=== PATIENT | male | born 1965 | race African-American/Black ===

== ENCOUNTER 2022-03-01 21:35 | Inpatient (IN) | payer MEDICAID ==
[~2022-03-01] VITALS: Ht 170.2 cm; Wt 68.8 kg
[2022-03-01 22:28] LABS: Basophils # (auto) 0 10 ^3/uL (0-0.2); Basophils % (auto) 0.6 % (0.0-2.0); Eosinophils # (auto) 0.1 10 ^3/uL (0-0.8); Eosinophils % (auto) 1.1 % (0.0-7.0); Hemoglobin 12.3 g/dL (13.5-17.5); Lymphocytes # (auto) 1.4 10 ^3/uL (0.4-5.4); Lymphocytes % (auto) 21.2 % (10.0-50.0); Mean Corpuscular Hemoglobin 30.8 pg (28.0-32.0); Mean Corpuscular Hgb Conc. 33.3 g/dL (32.0-36.0); Mean Corpuscular Volume 92.6 fL (80.0-100.0); Monocytes # (auto) 0.6 10 ^3/uL (0-1.3); Monocytes % (auto) 9.3 % (0.0-12.0); Neutrophils # (auto) 4.5 10 ^3/uL (1.6-8.6); Neutrophils % (auto) 67.8 % (37.0-80.0); Nucleated Red Blood Cells % 0.1 %; Red Blood Cells 3.99 10^6/uL (4.5-5.90); Red Cell Distribution Width 12.9 % (11.8-14.3); White Blood Cell 6.7 10^3/uL (4.4-10.8)
[2022-03-01 22:48] LABS: Albumin 3.7 g/dL (3.4-5.0); Calcium 8.2 mg/dL (8.5-10.1); Potassium 3.1 mmol/L (3.5-5.1)
[2022-03-01 22:59] LABS: BUN/Creatinine Ratio 5.9; Bilirubin, Total 1.3 mg/dL (0.2-1.0); Total Protein 8.1 g/dL (6.4-8.2)
[2022-03-01 23:11] LABS: Urine Bacteria NONE SEEN /hpf (None Seen); Urine Blood Negative /uL (Negative); Urine Mucus FEW (None Seen); Urine Specific Gravity 1.007 (1.001-1.035); Urine WBC <1 /hpf (0 - 3)
[2022-03-02] MEDS ORDERED: ALBUTEROL SULF 2.5 MG/0.5ML(0.5%) NEB SOLN NEB ONE (01:30)
[2022-03-02] MEDS ORDERED: MORPHINE SULFATE INJ 2 MG/ml SYRG IV PRN (04:45)
[2022-03-02] MEDS ORDERED: TEMAZEPAM 15 MG CAP PO PRN (04:45)
[2022-03-02] MEDS ORDERED: NITROGLYCERIN 0.4 MG SL TAB SL PRN (04:45)
[2022-03-02] MEDS ORDERED: ACETAMINOPHEN 325 MG TAB PO PRN (04:45)
[2022-03-02] MEDS ORDERED: ONDANSETRON HCL 4 MG/2 ML VIAL IV PRN (04:45)
[2022-03-02] MEDS: POTASSIUM CHL 20MEQ/100ML 100 ML IV SCH ×2 (06:33→08:07)
[2022-03-02] MEDS: SODIUM CHLOR 0.9% PF (SALINE LOCK) 10ML VIAL/SYR IV SCH ×3 (06:34→21:33)
[2022-03-02 07:28] LABS: Basophils # (auto) 0 10 ^3/uL (0-0.2); Basophils % (auto) 0.6 % (0.0-2.0); Eosinophils # (auto) 0.1 10 ^3/uL (0-0.8); Eosinophils % (auto) 1.8 % (0.0-7.0); Hemoglobin 11.9 g/dL (13.5-17.5); Lymphocytes # (auto) 1.4 10 ^3/uL (0.4-5.4); Lymphocytes % (auto) 23.6 % (10.0-50.0); Mean Corpuscular Hemoglobin 31.4 pg (28.0-32.0); Mean Corpuscular Hgb Conc. 33.9 g/dL (32.0-36.0); Mean Corpuscular Volume 92.5 fL (80.0-100.0); Monocytes # (auto) 0.7 10 ^3/uL (0-1.3); Monocytes % (auto) 10.9 % (0.0-12.0); Neutrophils # (auto) 3.8 10 ^3/uL (1.6-8.6); Neutrophils % (auto) 63.1 % (37.0-80.0); Nucleated Red Blood Cells % 0.3 %; Red Blood Cells 3.79 10^6/uL (4.5-5.90); Red Cell Distribution Width 13.1 % (11.8-14.3); White Blood Cell 6.1 10^3/uL (4.4-10.8)
[2022-03-02 07:40] LABS: Albumin 3.5 g/dL (3.4-5.0); Calcium 8.2 mg/dL (8.5-10.1); Potassium 3.3 mmol/L (3.5-5.1)
[2022-03-02 07:43] LABS: BUN/Creatinine Ratio 7.2; Bilirubin, Total 1.2 mg/dL (0.2-1.0); Total Protein 7.4 g/dL (6.4-8.2)
[2022-03-02] MEDS: FAMOTIDINE (10MG/ML) 2ML VL IV SCH ×2 (10:08→21:32)
[2022-03-02] MEDS: ASPirin 81 mg TAB PO SCH (10:08)
[2022-03-02] MEDS: CARVEDILOL 12.5 MG TAB PO SCH ×2 (10:09→21:33)
[2022-03-02] MEDS ORDERED: SPIRONOLACTONE 25 MG TAB PO ONE (15:30)
[2022-03-02 16:27] VITALS: BP 175/73
[2022-03-02] MEDS: cloNIDine HCL 0.1 MG TAB PO PRN (19:29)
[2022-03-02] MEDS: DOCUSATE SOD 100 MG CAP PO PRN (20:13)
[2022-03-02] MEDS: traMADol HCL 50 MG TAB PO PRN (20:13)
[2022-03-02 22:00] VITALS: BP 178/78
[2022-03-03 05:00] VITALS: BP 151/73
[2022-03-03] MEDS: SODIUM CHLOR 0.9% PF (SALINE LOCK) 10ML VIAL/SYR IV SCH ×3 (05:47→22:45)
[2022-03-03 06:25] LABS: Basophils # (auto) 0.1 10 ^3/uL (0-0.2); Basophils % (auto) 0.9 % (0.0-2.0); Eosinophils # (auto) 0.2 10 ^3/uL (0-0.8); Eosinophils % (auto) 3.1 % (0.0-7.0); Hematocrit 34.7 % (41.0-53.0); Hemoglobin 11.5 g/dL (13.5-17.5); Lymphocytes # (auto) 1.6 10 ^3/uL (0.4-5.4); Lymphocytes % (auto) 27.3 % (10.0-50.0); Mean Corpuscular Hemoglobin 31.3 pg (28.0-32.0); Mean Corpuscular Hgb Conc. 33.2 g/dL (32.0-36.0); Mean Corpuscular Volume 94.4 fL (80.0-100.0); Monocytes # (auto) 0.7 10 ^3/uL (0-1.3); Monocytes % (auto) 11.2 % (0.0-12.0); Neutrophils # (auto) 3.5 10 ^3/uL (1.6-8.6); Neutrophils % (auto) 57.5 % (37.0-80.0); Nucleated Red Blood Cells % 0.2 %; Red Blood Cells 3.68 10^6/uL (4.5-5.90); Red Cell Distribution Width 13.1 % (11.8-14.3)
[2022-03-03 06:28] LABS: Albumin 3.3 g/dL (3.4-5.0); Calcium 8.6 mg/dL (8.5-10.1); Potassium 3.3 mmol/L (3.5-5.1)
[2022-03-03 06:31] LABS: BUN/Creatinine Ratio 12.7; Bilirubin, Total 1.1 mg/dL (0.2-1.0); Total Protein 6.9 g/dL (6.4-8.2)
[2022-03-03 09:00] VITALS: BP 167/75
[2022-03-03] MEDS: FAMOTIDINE (10MG/ML) 2ML VL IV SCH ×2 (09:49→22:45)
[2022-03-03] MEDS: SPIRONOLACTONE 25 MG TAB PO SCH (09:50)
[2022-03-03] MEDS: ASPirin 81 mg TAB PO SCH (09:50)
[2022-03-03] MEDS: cloNIDine HCL 0.1 MG TAB PO PRN ×2 (09:51→18:57)
[2022-03-03] MEDS: traMADol HCL 50 MG TAB PO PRN ×2 (09:52→17:59)
[2022-03-03] MEDS: CARVEDILOL 12.5 MG TAB PO SCH ×2 (09:52→22:46)
[2022-03-03 13:00] VITALS: BP 124/71
[2022-03-03] MEDS ORDERED: LOSARTAN POTASSIUM 50 MG TAB PO ONE (13:50)
[2022-03-03 17:00] VITALS: BP 147/78
[2022-03-03] MEDS ORDERED: amLODIPine BESYLATE 5 MG TAB PO ONE (19:30)
[2022-03-03 22:00] VITALS: BP 154/80
[2022-03-04] MEDS: traMADol HCL 50 MG TAB PO PRN ×3 (01:53→20:55)
[2022-03-04] MEDS: DOCUSATE SOD 100 MG CAP PO PRN (01:54)
[2022-03-04 05:00] VITALS: BP 150/83
[2022-03-04] MEDS: SODIUM CHLOR 0.9% PF (SALINE LOCK) 10ML VIAL/SYR IV SCH ×3 (05:12→21:30)
[2022-03-04] MEDS ORDERED: TRAM50TA2 PO (07:01)
[2022-03-04] MEDS ORDERED: NITR0.4S29 SL (07:05)
[2022-03-04] MEDS ORDERED: BENA-30 PO (07:05)
[2022-03-04] MEDS ORDERED: CLON0.1T PO (07:05)
[2022-03-04] MEDS ORDERED: FENO54TA4 PO (07:05)
[2022-03-04] MEDS ORDERED: FURO40TA4 PO (07:05)
[2022-03-04] MEDS ORDERED: MET50T PO (07:05)
[2022-03-04 08:16] VITALS: BP 163/85
[2022-03-04] MEDS: FAMOTIDINE (10MG/ML) 2ML VL IV SCH ×2 (09:11→21:30)
[2022-03-04] MEDS: SPIRONOLACTONE 25 MG TAB PO SCH (09:12)
[2022-03-04] MEDS: amLODIPine BESYLATE 5 MG TAB PO SCH (09:12)
[2022-03-04] MEDS: ASPirin 81 mg TAB PO SCH (09:13)
[2022-03-04] MEDS: CARVEDILOL 12.5 MG TAB PO SCH (09:13)
[2022-03-04] MEDS ORDERED: LOSARTAN POTASSIUM 50 MG TAB PO SCH (10:00)
[2022-03-04] MEDS: cloNIDine HCL 0.1 MG TAB PO PRN (11:24)
[2022-03-04] MEDS ORDERED: LACTULOSE 20Gm/30ML SOLN PO ONE (12:15)
[2022-03-04 12:22] VITALS: BP_SYST 161
[2022-03-04 16:54] VITALS: BP 116/68
[2022-03-04 20:00] VITALS: BP 147/78
[2022-03-04 22:00] VITALS: BP 147/78
[2022-03-05] MEDS: traMADol HCL 50 MG TAB PO PRN ×3 (02:26→20:19)
[2022-03-05 05:00] VITALS: BP 164/69
[2022-03-05] MEDS: cloNIDine HCL 0.1 MG TAB PO PRN (05:14)
[2022-03-05] MEDS: SODIUM CHLOR 0.9% PF (SALINE LOCK) 10ML VIAL/SYR IV SCH ×3 (05:15→22:20)
[2022-03-05 09:00] VITALS: BP 135/76
[2022-03-05 09:31] VITALS: BP 193/99
[2022-03-05] MEDS: FAMOTIDINE (10MG/ML) 2ML VL IV SCH ×2 (10:41→22:20)
[2022-03-05] MEDS: amLODIPine BESYLATE 5 MG TAB PO SCH (10:44)
[2022-03-05] MEDS: LOSARTAN POTASSIUM 50 MG TAB PO SCH (10:44)
[2022-03-05] MEDS: SPIRONOLACTONE 25 MG TAB PO SCH (10:44)
[2022-03-05] MEDS: ASPirin 81 mg TAB PO SCH (10:45)
[2022-03-05] MEDS ORDERED: CLON0.1T PO (12:47)
[2022-03-05 13:00] VITALS: BP 146/88
[2022-03-05 17:21] VITALS: BP 138/81
[2022-03-05 22:00] VITALS: BP 139/69
[2022-03-06] MEDS: traMADol HCL 50 MG TAB PO PRN ×2 (01:54→08:58)
[2022-03-06 05:00] VITALS: BP 147/79
[2022-03-06] MEDS: FAMOTIDINE (10MG/ML) 2ML VL IV SCH (08:56)
[2022-03-06] MEDS: ASPirin 81 mg TAB PO SCH (08:56)
[2022-03-06] MEDS: SPIRONOLACTONE 25 MG TAB PO SCH (08:56)
[2022-03-06] MEDS: LOSARTAN POTASSIUM 50 MG TAB PO SCH (08:59)
[2022-03-06 09:00] VITALS: BP 177/81
[2022-03-06] MEDS: amLODIPine BESYLATE 5 MG TAB PO SCH (09:00)
[2022-03-06] MEDS: cloNIDine HCL 0.1 MG TAB PO PRN (12:09)
[2022-03-06 12:20] VITALS: BP 174/93
== END 2022-03-06 14:20 | disposition home or self-care (01) | DRG 198 ==
LOC: ER 21:35 → TELE 03-02 04:35 → TELE-WESTW 03-02 15:55
PROVIDERS: ADMIT Nurse Practitioner Family; ATTEND Internal Medicine
DX: I25.110 Atherosclerotic heart disease of native coronary artery with unstable angina pectoris (principal); I50.42 Chronic combined systolic (congestive) and diastolic (congestive) heart failure; K76.0 Fatty (change of) liver, not elsewhere classified; E87.1 Hypo-osmolality and hyponatremia; I11.0 Hypertensive heart disease with heart failure; E11.9 Type 2 diabetes mellitus without complications; E87.6 Hypokalemia; I16.0 Hypertensive urgency; Z88.1 Allergy status to other antibiotic agents; Z88.8 Allergy status to other drugs, medicaments and biological substances; Z20.822 Contact with and (suspected) exposure to COVID-19; R74.01 Elevation of levels of liver transaminase levels
CPT/HCPCS: 36415; 71045; 76705; 78452; 80053; 81001; 84484; 85025; 93005; 93017; 94640; 96360; 96361; G0378; J3480; J3490

== ENCOUNTER 2023-01-18 06:12 | Emergency (ER) | payer MEDICAID ==
[~2023-01-18] VITALS: Ht 170.2 cm; Wt 78.8 kg
[~2023-01-18 06:12] MED LIST: BENA-30 PO; CLON0.1T PO; FENO54TA4 PO; FURO40TA4 PO; MET50T PO; NITR0.4S29 SL; TRAM50TA2 PO
[2023-01-18 06:16] VITALS: BP 127/64; PULSE 77; RESP 16; TEMP 98.1; O2SAT 97
== END 2023-01-18 09:19 | disposition home or self-care (01) ==
LOC: ER 06:12
DX: S93.401A Sprain of unspecified ligament of right ankle, initial encounter (principal); I11.0 Hypertensive heart disease with heart failure; I50.89 Other heart failure; Z88.1 Allergy status to other antibiotic agents; Z88.8 Allergy status to other drugs, medicaments and biological substances; Z79.899 Other long term (current) drug therapy; W18.39XA Other fall on same level, initial encounter; Y93.89 Activity, other specified; Y92.89 Other specified places as the place of occurrence of the external cause; Y99.8 Other external cause status
CPT/HCPCS: 73610

== ENCOUNTER 2024-09-04 18:11 | Emergency (ER) | payer MEDICAID ==
[~2024-09-04] VITALS: Ht 170.2 cm; Wt 83.2 kg
--- NOTE | 2024-09-04 19:01 | DVH ---
EXAM: CT HEAD WITHOUT CONTRAST INDICATION: Fall/posterior trauma TECHNIQUE: CT of the head without intravenous contrast. Radiation Dose Information: CT Dose: CTDI volume is 68.77 mGy. Dose-length product is 974.08 mGy*cm The dose indicators for CT are the volume Computed Tomography (CT) Dose Index (CTDIvol) and the Dose Length Product (DLP), and are measured in units of mGy and mGy-cm, respectively. These indicators are not patient dose, but values generated from the CT scanner acquisition factors. The report includes radiation exposure data for exposures received during this examination. COMPARISON: None FINDINGS: There is no evidence of acute intracranial hemorrhage, extra-axial collection, mass effect, midline s hift, herniation or hydrocephalus. The ventricles, sulci and cisterns are age appropriate. The barnes-white differentiation is intact. Patchy periventricular and subcortical white matter hypoattenuation is nonspecific but may be related to small vessel ischemic disease. The visualized paranasal sinuses and mastoid air cells are clear. The surrounding soft tissues and osseous structures are unremarkable. IMPRESSION: 1. No acute intracranial hemorrhage 2. No CT findings of displaced skull fracture 3. No CT findings of territorial ischemia.
--- NOTE | 2024-09-04 19:05 | DVH ---
EXAM: CT CERVICAL WITHOUT CONTRAST INDICATION: Fall/trauma EXAM DATE: 09/04/2024 06:34 PM COMPARISON: None TECHNIQUE: Multiple axial CT images of the cervical spine were obtained using bone algorithm. Axial a nd coronal reformatting was done. Bone and soft tissue windows were reviewed. Radiation Dose Information: CT Dose: CTDI volume is 22.21 mGy. Dose-length product is 550.5 mGy*cm FINDINGS: The cervical alignment is intact. No acute cervical spine fracture is identified. The vertebral body heights are intact. No suspicious osseous lesions are identified. Moderate degenerative changes throughout the cervical spine There is no prevertebral soft tissue swelling. IMPRESSION: 1. No evidence of acute cervical spine fracture or traumatic malalignment. 2. Moderate degenerative changes throughout the cervical spine. All CT scans at this medical facility are performed using dose modulation techniques as appropriate t o a performed exam including the following: Automated exposure control was utilized; adjustment of th e MA and/or KV according to patient size; and use of iterative reconstruction technique.
--- NOTE | 2024-09-04 19:21 | ED.PDOC ---
Tyrell. trauma (HPI) HPI Comments 59y M who presents to the ED for chief complaint of mechanical fall. Pt states he was using cane to ambulate and states while going up stairs, he slipped and fell backwards. Pt denies any associated loss of consciousness but states he has been having intermittent neck and pain to the posterior head. Pt has also star mario to have intermittent dizziness and rates his pain 9/10, with no associated exacerbating or relieving factors. Pt in the ED,is otherwise alert and oriented and able to answer all questions. Pt otherwise denies any other symptoms at this time. Chief Complaint: Head Injury Time Seen by MD: 19:18 Reviewed notes: Nurses Notes, Medications, Allergies Allergies: Coded Allergies: Hydralazine (Verified Allergy, Mild, 03/02/22) Erythromycin (Verified Allergy, Unknown, 03/01/22) Home Meds Active Scripts Clonidine Hydrochloride (Clonidine Hcl) 0.1 Mg Tab, 0.1 MG PO BID for 30 Days, #60 TAB 3 Refills Prov:CARLIE PATRICK MD 03/05/22 Reported Medications Fenofibrate (Fenofibrate) 54 Mg Tab, 1 TAB PO DAILY, #30 TAB 5 Refills 03/04/22 Benazepril HCl (Benazepril Hydrochloride) 20 Mg Tab, 20 MG PO, TAB 03/04/22 Clonidine Hydrochloride (Clonidine Hcl) 0.1 Mg Tab, 0.1 MG PO BID for 30 Days, MG 03/04/22 Furosemide (Furosemide) 40 Mg Tab, 40 MG PO DAILY for 30 Days 03/04/22 Furosemide (Furosemide) 40 Mg Tab, 40 MG PO DAILY for 30 Days 03/04/22 Nitroglycerin (NTROSTAT SUBLINGUAL) 0.4 Mg Sl, 0.4 MG SL PRN, TAB *MAY REPEAT EVERY 5 MINUTES X 3 TOTAL IF NO RELIEF, INITIATE ANALGESIC THERAPY. NOTIFY PHYSICIAN *Do not crush. 03/04/22 Metoprolol Tartrate (LOPRESSOR TABLET) 50 Mg Tb, 1 TAB PO DAILY, #60 TAB 5 Refills 03/04/22 Tramadol Hcl (Tramadol Hcl) 50 Mg Tab, 50 MG PO Q6HP PRN for PAIN SCALE 1 THRU 6, MG 03/04/22 Information Source: Patient Mode of Arrival: Ambulatory Brought in by: self Severity: Moderate Timing: Hours Duration: Since onset Prehospital treatment: None Location: Head, Neck Location of laceration: None Mechanism: Fall Associated signs and symtoms: Headache Past Medical History PAST MEDICAL HISTORY: CHF, HTN Surgical History: Denies all surgeries Family History Family History: Reviewed,noncontributory to illness Social History Smoker: Non-Smoker Alcohol: Denies ETOH Use Drugs: Denies Drug Use Lives In: Home Constitutional: denies: chills, diaphoresis, fatigue, fever, malaise, sweats, weakness, others EENTM: denies: blurred vision, double vision, ear bleeding, ear discharge, ear drainage, ear pain, ear ringing, eye pain, eye redness, hearing loss, mouth pain, mouth swelling, nasal discharge, nose bleeding, nose congestion, nose pain, photophobia, tearing, throat pain, throat swelling, voice changes, others Respiratory: denies: cough, hemoptysis, orthopnea, SOB at rest, shortness of breath, SOB with excertion, stridor, wheezing, others Cardiovascular: denies: chest pain, dizzy spells, diaphoresis, Dyspnea on exertion, edema, irregular heart beat, left arm pain, lightheadedness, palpitations, PND, syncope, others Gastrointestinal: denies: abdomen distended, abdominal pain, blood streaked bowels, constipated, diarrhea, dysphagia, difficulty swallowing, hematemesis, melena, nausea, poor appetite, poor fluid intake, rectal bleeding, rectal pain, vomiting, others Genitourinary: denies: burning, dysuria, flank pain, frequency, hematuria, incontinence, penile discharge, penile sore, pain, testicle pain, testicle swelling, urgency, others Neurological: reports: dizziness, headache; denies: fainting, left sided numbness, left sided weakness, numbness, paresthesia, pre-existing deficit, right sided numbness, right sided weakness, seizure, speech problems, tingling, tremors, weakness, others Musculoskeletal: reports: neck pain; denies: back pain, gout, joint pain, joint swelling, muscle pain, muscle stiffness, others Integumetry: denies: bruises, change in color, change in hair/nails, dryness, laceration, lesions, lumps, rash, wounds, others Allergic/Immunocompromised: denies: Difficulty Healing, Frequent Infections, Hives, Itching, others Hematologic/Lymphatic: denies: anemia, blood clots, easy bleeding, easy bruising, swollen glands, others Endocrine: denies: excessive hunger, excessive sweating, excessive thirst, excessive urination, flushing, intolerance to cold, intolerance to heat, unexplained weight gain, unexplained weight loss, others Psychiatric: denies: anxiety, bipolar disorder, depression, hopeless, panic disorder, schizophrenia, sleepless, suicidal, others All Other Systems: Reviewed and Negative Physical Exam General Appearance: Moderate Distress ([id number] distress due to head and neck pain concerns.), Normal HEENT: Head (Unremarkable cranial evaluation. No skull depressions or deformities. Tenderness to palpation throughout the superior occipital region. No definitive hematoma formed.), Normal ENT Inspection, Pharynx Normal, TMs Normal Neck: Other (Diffuse bilateral posterior tenderness to palpation throughout the cervical spine. Moderate hypertonicity appreciated. No step-offs noted. Significant reduced range of motion.) Respiratory: Chest Non-Tender, Lungs Clear, No Accessory Muscle Use, No Respiratory Distress, Normal Breath Sounds Cardiovascular: No Edema, No JVD, No Murmur, No Gallop, Normal Peripheral Pulses, Regular Rate/Rhythm Breast Exam: Deferred Gastrointestinal: No Organomegaly, Non Tender, No Pulsatile Mass, Normal Bowel Sounds, Soft Genitalia: Deferred Pelvic: Deferred Rectal: Deferred Extremities: NOT DONE Neurologic: Alert, No Motor Deficits, Normal Affect, Normal Mood, No Sensory Deficits Cerebellar Function: Normal Reflexes: Normal Skin: Dry, Normal Color, Warm Lymphatic: No Adenopathy Was a procedure done? Was a procedure done?: No Differential Diagnosis Multiple Trauma: Closed Head Injury, Cerebral Contusion, Spine Injury, Hematoma, Other (djd) Neck Injury: Cervical Sprain, Cervical Strain X-Ray, Labs, Meds, VS Vital Signs Date Time Temp Pulse Resp B/P (MAP) Pulse Ox O2 Delivery O2 Flow Rate FiO2 09/04/24 18:27 97.9 77 17 148/70 (96) [address] [address] Ph: [phone] DIAGNOSTIC IMAGING Diagnostic Imaging Report : [id number] Signed PATIENT: RAFI VACA ACCT: [id number] UNIT: [id number] : 1965 LOC: ER ROOM / BED: / AGE / SEX: 59 / M ADM STATUS: REG ER SERVICE 27 ORDERING PHYSICIAN: BK JUAN PAC PROCEDURE(s): HWOCT - HEAD WITHOUT CONTRAST REASON: Fall/posterior trauma ORDER NUMBER(s): [id number], ACCESSION NUMBER(s): [id number] EXAM: CT HEAD WITHOUT CONTRAST INDICATION: Fall/posterior trauma TECHNIQUE: CT of the head without intravenous contrast. Radiation Dose Information: CT Dose: CTDI volume is 68.77 mGy. Dose-length product is 974.08 mGy*cm The dose indicators for CT are the volume Computed Tomography (CT) Dose Index (CTDIvol) and the Dose Length Product (DLP), and are measured in units of mGy and mGy-cm, respectively. These indicators are not patient dose, but values generated from the CT scanner acquisition factors. The report includes radiation exposure data for exposures received during this examination. COMPARISON: None FINDINGS: There is no evidence of acute intracranial hemorrhage, extra-axial collection, mass effect, midline shift, herniation or hydrocephalus. The ventricles, sulci and cisterns are age appropriate. The barnes-white differentiation is intact. Patchy periventricular and subcortical white matter hypoattenuation is nonspecific but may be related to small vessel ischemic disease. The visualized paranasal sinuses and mastoid air cells are clear. The surrounding soft tissues and osseous structures are unremarkable. IMPRESSION: 1. No acute intracranial hemorrhage 2. No CT findings of displaced skull fracture 3. No CT findings of territorial ischemia. ATED BY: MARCO NAVARRO Jr., DO DICTATED DATE/TIME: 09/04/241857 SIGNED BY: MARCO NAVARRO Jr., SIGNED DATE/TIME: 09/04/241857 CC: [place] [id number] Ph: [phone] DIAGNOSTIC IMAGING Diagnostic Imaging Report : [id number] Signed PATIENT: RAFI VACA ACCT: [id number] UNIT: [id number] : 1965 LOC: ER ROOM / BED: / AGE / SEX: 59 / M ADM STATUS: REG ER SERVICE 27 ORDERING PHYSICIAN: BK JUAN PAC PROCEDURE(s): CS2 - CERVICAL WITHOUT CONTRAST REASON: Fall/trauma ORDER NUMBER(s): [id number], ACCESSION NUMBER(s): [id number] EXAM: CT CERVICAL WITHOUT CONTRAST INDICATION: Fall/trauma EXAM DATE: 09/04/2024 06:34 PM COMPARISON: None TECHNIQUE: Multiple axial CT images of the cervical spine were obtained using bone algorithm. Axial and coronal reformatting was done. Bone and soft tissue windows were reviewed. Radiation Dose Information: CT Dose: CTDI volume is 22.21 mGy. Dose-length product is 550.5 mGy*cm FINDINGS: The cervical alignment is intact. No acute cervical spine fracture is identified. The vertebral body heights are intact. No suspicious osseous lesions are identified. Moderate degenerative changes throughout the cervical spine There is no prevertebral soft tissue swelling. IMPRESSION: 1. No evidence of acute cervical spine fracture or traumatic malalignment. 2. Moderate degenerative changes throughout the cervical spine. All CT scans at this medical facility are performed using dose modulation techniques as appropriate to a performed exam including the following: Automated exposure control was utilized; adjustment of the MA and/or KV according to patient size; and use of iterative reconstruction technique. ATED BY: CARMENCITA CARRANZA MD DICTATED DATE/TIME: 09/04/241902 SIGNED BY: CARMENCITA CARRANZA MD SIGNED DATE/TIME: 09/04/241902 CC: X-Ray, Labs, Meds, VS Comment All studies performed the ED were evaluated by me personally. Imaging studies of the skull and neck were unremarkable for any acute concerns. No subarachnoid hemorrhage, subdural hematoma or skull fracture. No cervical vertebrae fracture or dislocation noted. Patient sustained some head trauma with cervical muscle strain. Advised medication as needed as well as ice therapy. Time of 1ST Reevaluation: 19:45 Reevaluation 1ST: Improved Consultation: PCP Patient Education/Counseling: Diagnosis, Treatment Family Education/Counseling: Diagnosis, Treatment, No Family Present Departure 1 Departure Time of Disposition: 19:45 Impression: Primary Impression: Head trauma Additional Impression: Cervical muscle strain Disposition: 01 HOME / SELF CARE / HOMELESS Condition: Stable Additional Instructions: Advised pain medication as needed for symptomatic relief as well as ice therapy. e-Prescriptions Acetaminophen (Acetaminophen) 500 Mg Tab 500 MG PO Q4HP PRN, #30 TAB Prov: BK JUAN PAC 09/04/24 Ibuprofen Micronized (Ibuprofen) 800 Mg Tab 800 MG PO Q8HP PRN, #20 TAB Prov: BK JUAN PAC 09/04/24 Discharged With: Self, Friend Critical Care Note Critical Care Time?: No Stability Stability form required: No Heart Score Heart Score: Heart Score Response (Comments) Value History N/A 0 EKG N/A 0 Age N/A 0 Risk Factors N/A 0 Troponin N/A 0 Total 0 I personally scribed for BK JUAN PAC ([email or web address]) on 09/04/24 at 19:21. Electronically submitted by Rosibel Saleh ([email or web address]). BK JUAN PAC Sep 04, 2024 19:21
[2024-09-04] MEDS ORDERED: IBUP-1455 PO (19:46)
[2024-09-04] MEDS ORDERED: ACET500T58 PO (19:46)
[2024-09-04 20:29] VITALS: BP 148/70; PULSE 77; RESP 17; TEMP 97.9; O2SAT 98
[2024-09-04] MEDS: HYDROcodone-ACET 5/325MG TAB PO ONE (20:39)
== END 2024-09-04 20:43 | disposition home or self-care (01) ==
LOC: ER 18:11
DX: S16.1XXA Strain of muscle, fascia and tendon at neck level, initial encounter (principal); S09.90XA Unspecified injury of head, initial encounter; I11.0 Hypertensive heart disease with heart failure; I50.89 Other heart failure; Z79.899 Other long term (current) drug therapy; Z88.1 Allergy status to other antibiotic agents; W01.0XXA Fall on same level from slipping, tripping and stumbling without subsequent striking against object, initial encounter; Y93.89 Activity, other specified; Y92.89 Other specified places as the place of occurrence of the external cause; Y99.8 Other external cause status
CPT/HCPCS: 70450; 72125